=== PATIENT | male | born 1950 | race Caucasian/White ===

== ENCOUNTER → 2017-06-07 | Outpatient (CLI) | payer OTHER | LOC: FIMAGING 13:43 | PROVIDERS: ATTEND Physician Assistant | DX: M51.35 Other intervertebral disc degeneration, thoracolumbar region (principal); M51.25 Other intervertebral disc displacement, thoracolumbar region; M47.815 Spondylosis without myelopathy or radiculopathy, thoracolumbar region; M48.061 Spinal stenosis, lumbar region without neurogenic claudication ==

== ENCOUNTER 2018-08-17 18:57 | Observation (INO) | payer OTHER, MEDICARE ==
--- NOTE | 2018-08-17 19:27 | EDPHY ---
H & P Stated Complaint: Rectal bleeding Time Seen by Provider: 08/17/18 19:11 HPI/ROS: CHIEF COMPLAINT: Rectal bleeding HISTORY OF PRESENT ILLNESS: This is a 67-year-old male who takes meloxicam, baby aspirin daily, and occasional Aleve. He comes to the emergency department with rectal bleeding. He had his 1st episode of rectal bleeding yesterday. He at that time he saw bright red blood when he moved his bowels. He is unable to quantify the amount of blood. He saw his primary care provider, Mikel Flaherty, yesterday about this problem. Labs were drawn yesterday. The patient did well overnight M seemed fine this morning. However this afternoon, around 3:00 p.m. (4 hr ago) he developed bright red blood per rectum. He states that the bleeding has continued since that time. He feels as if he needs to move his bowels but, when he tries to do so, there is only blood. He has begun to feel somewhat lightheaded and dizzy. He denies chest pain or shortness of breath. REVIEW OF SYSTEMS: A ten system review of systems was performed and is negative with the exception of the items mentioned in the HPI. Past medical history: Past surgical history: 1. Knee replacement 2. Right shoulder replacement 3. Lumbar fusion Social history: He lives with his . He is a retired computer engineering technologist. He does not use tobacco products. He does not regularly drink alcohol. General Appearance: Alert. Vital signs reviewed. Eyes: Pupils equal and round, no conjunctival injection, no discharge. Anicteric. ENT, Mouth: Mucous membranes are moist, no oropharyngeal erythema or edema. Neck: No lymphadenopathy, supple. Respiratory: Lungs are clear to auscultation; no wheezes, rales, or rhonchi. Cardiovascular: Regular rate and rhythm; no murmur, rub, or gallop. Gastrointestinal: Abdomen is soft and nontender, no masses or organomegaly, bowel sounds normal. Skin: Warm and dry, no rashes on exposed skin, normal color. Back: Nontender to palpation over the thoracolumbar spine. No CVAT. Rectal: Red blood on examining glove. No visible external hemorrhoid. No palpable masses. No tenderness. Extremities: No lower extremity edema, no calf tenderness or swelling. Neurological: Alert and oriented. Moving all four extremities easily and equally. Psychiatric: Slightly worried affect. - Personal History Current Tetanus/Diphtheria Vaccine: Yes Current Tetanus Diphtheria and Acellular Pertussis (TDAP): Yes Tetanus Vaccine Date: WITHIN 10 YRS - Medical/Surgical History Hx Asthma: No Hx Chronic Respiratory Disease: No Hx Diabetes: No Hx Cardiac Disease: No Hx Renal Disease: No Hx Cirrhosis: No Hx Alcoholism: No Hx HIV/AIDS: No Hx Splenectomy or Spleen Trauma: No Other PMH: arrythmyias, GENEVIEVE, Rt TKA, Lfusion, - Social History Smoking Status: Former smoker Constitutional: Initial Vital Signs Temperature (C) 36.6 C 08/17/18 19:00 Heart Rate 109 H 08/17/18 19:00 Respiratory Rate 18 08/17/18 19:00 Blood Pressure 132/83 H 08/17/18 19:00 O2 Sat (%) 93 08/17/18 19:00 O2 Delivery Mode Room Air O2 (L/minute) 3 Allergies/Adverse Reactions: YELLOW CHEESES Allergy (Uncoded 08/25/12 10:08) TRIGGERS MIGRAINES Home Medications: Medication Instructions Recorded Cholecalciferol Vit D3 [Vitamin D3 2,000 units PO BID 08/19/12 2000 units] Docusate Sodium 100 mg PO DAILY 08/19/12 Metoprolol Succinate Xr [Toprol Xl 25 mg PO DAILY 08/19/12 25 mg (*)] Tamsulosin HCl [Flomax 0.4 MG (*)] 0.4 mg PO DAILY 08/19/12 Zolpidem Tartrate [Ambien 10 mg] 10 mg PO HS 08/19/12 traMADol [Ultram 50 mg (*)] 50 mg PO DAILY 08/19/12 QUEtiapine FUMARATE [Seroquel 50 50 mg PO HS 10/20/16 mg (*)] Calcium Citrate [Citracal] 400 mg PO HS 08/17/18 Cephalexin [Keflex (*)] 500 mg PO TID 08/17/18 Diazepam [Valium 5 MG (*)] 5 mg PO Q6 PRN 08/17/18 Doxycycline Hyclate [Vibramycin 100 mg PO BID 08/17/18 100 MG (*)] Gabapentin [Neurontin 100 MG (*)] 100 mg PO DAILY 08/17/18 LORazepam [Ativan (*)] 1 mg PO Q6 PRN 08/17/18 Magnesium Oxide [Magnesium Oxide 400 mg PO HS 08/17/18 400 mg (*)] Pantoprazole Sodium [Protonix 40mg 40 mg PO BID 08/17/18 (*)] Rizatriptan Benzoate [Maxalt] 10 mg PO Q6 PRN 08/17/18 SUMAtriptan [Imitrex 50 MG (*)] 100 mg PO Q6 PRN 08/17/18 oxyCODONE IR [Oxycodone Ir (*)] 5 mg PO Q6 PRN 08/17/18 Acetaminophen [Tylenol 325mg (*)] 650 mg PO Q4HRS PRN tab 08/18/18 Medical Decision Making - Diagnostics EKG Interpretation: EKG shows sinus tachycardia with rate of 107. No acute ischemic changes. ED Course/Re-evaluation: 67-year-old male on NSAIDs who presents with bright red blood per rectum. By his report he has had significant bleeding for the past 3-4 hours. He is beginning to feel dizzy and lightheaded. Initial blood pressure 132/83. Heart rate 110. 2 large-bore IVs started on patient arrival. Blood work sent. He got up to use the restroom, past blood only. He continues to feel dizzy when upright. Blood pressure 130/89. Patient's blood work yesterday hemoglobin 14.9 hematocrit 45.7. Today hemoglobin 14 hematocrit 41.2. Blood has been typed and screened. 1 unit typed and cross matched to be held. I spoke with Dr. Laney Sanchez will admit the patient to the hospital. I have also spoken with Dr. Bellamy. He plans colonoscopy in the morning. He requests a bowel prep tonight with 1 gal Sher. Early in the morning he would like the patient to receive 300 mL of magnesium citrate orally. NPO after midnight with the exception of the Mag citrate in the morning. Differential Diagnosis: Lower GI bleeding including but not limited to diverticulosis, tumor, AVM, hemorrhoid and anal fissure. - Data Points Laboratory Results: Laboratory Results 08/17/18 19:15 08/17/18 19:15 Medications Given: Discontinued Medications Cephalexin HCl (Keflex) 500 mg PO TID DURAN PRN Reason: Protocol Stop: 09/16/18 21:59 Last Admin: 08/18/18 08:20 Dose: Not Given Cholecalciferol (Vitamin D) 2,000 units PO BID DURAN Stop: 02/14/19 08:59 Last Admin: 08/18/18 08:20 Dose: Not Given Diphenhydramine HCl (Benadryl Injection) 25 mg IVP EDNOW ONE Stop: 08/17/18 20:03 Last Admin: 08/17/18 20:04 Dose: 25 mg Docusate Sodium (Colace) 100 mg PO DAILY DURAN Stop: 02/14/19 08:59 Last Admin: 08/18/18 08:19 Dose: Not Given Doxycycline Hyclate (Doxycycline Hyclate) 100 mg PO BID DURAN PRN Reason: Protocol Stop: 09/16/18 22:14 Last Admin: 08/18/18 08:19 Dose: Not Given Gabapentin (Neurontin) 100 mg PO DAILY DURAN Stop: 02/14/19 08:59 Last Admin: 08/18/18 08:21 Dose: Not Given Sodium Chloride (Ns) 1,000 mls @ 0 mls/hr IV EDNOW ONE; Wide Open PRN Reason: Protocol Stop: 08/17/18 19:30 Last Admin: 08/17/18 19:40 Dose: 1,000 mls Sodium Chloride (Ns) 1,000 mls @ 125 mls/hr IV CONT DURAN Stop: 02/13/19 21:59 Last Admin: 08/18/18 05:30 Dose: 1,000 mls Lactated Ringer's (Lr) 1,000 mls @ 0 mls/hr IV ONCE ONE PRN Reason: As Directed Stop: 08/18/18 11:28 Last Admin: 08/18/18 11:30 Dose: 1,000 mls Magnesium Citrate (Magnesium Citrate) 300 ml PO ONCE ONE Stop: 08/18/18 05:01 Last Admin: 08/18/18 05:30 Dose: 300 ml Magnesium Oxide (Magnesium Oxide) 400 mg PO HS DURAN Stop: 02/13/19 22:14 Last Admin: 08/17/18 22:26 Dose: Not Given Metoprolol Succinate (Toprol Xl) 25 mg PO DAILY DURAN Stop: 02/14/19 08:59 Last Admin: 08/18/18 08:19 Dose: Not Given Ondansetron HCl (Zofran) 4 mg IVP EDNOW ONE Stop: 08/17/18 19:40 Last Admin: 08/17/18 19:40 Dose: 4 mg Ondansetron HCl (Zofran) 4 mg IVP Q4HRS PRN PRN Reason: Nausea/Vomiting, Can't Take PO Stop: 02/13/19 21:50 Last Admin: 08/17/18 23:35 Dose: 4 mg Pantoprazole Sodium (Protonix) 40 mg PO BID DURAN Stop: 02/14/19 08:59 Last Admin: 08/18/18 08:19 Dose: Not Given Polyethylene Glycol/Electrolytes (Gavilyte - G) 4,000 ml PO ONCE ONE Stop: 08/17/18 22:01 Last Admin: 08/17/18 22:36 Dose: 4,000 ml Quetiapine Fumarate (Seroquel) 50 mg PO HS DURAN Stop: 02/13/19 22:14 Last Admin: 08/17/18 22:26 Dose: Not Given Sumatriptan Succinate (Imitrex) 100 mg PO DAILY PRN PRN Reason: MIGRAINE Stop: 02/13/19 21:54 Last Admin: 08/18/18 10:25 Dose: 100 mg Tamsulosin HCl (Flomax) 0.4 mg PO DAILY [facility] Stop: 02/14/19 08:59 Last Admin: 08/18/18 08:19 Dose: Not Given Tramadol HCl (Ultram) 50 mg PO DAILY DURAN Stop: 02/14/19 08:59 Last Admin: 08/18/18 08:19 Dose: Not Given Zolpidem Tartrate (Ambien) 10 mg PO HS DURAN Stop: 02/13/19 22:14 Last Admin: 08/17/18 22:26 Dose: Not Given Point of Care Test Results: Chemistry 08/17/18 19:41 POC Sodium 141 mEq/L mEq/L (135-145) POC Potassium 4.1 mEq/L mEq/L (3.3-5.0) POC Chloride 106 mEq/L mEq/L (97-110) POC Total CO2 21 mEq/L L mEq/L (22-31) POC BUN 20 mg/dL mg/dL (7-23) POC Creatinine 1.2 mg/dL mg/dL (0.7-1.3) POC Glucose 134 mg/dL H mg/dL (70-100) ISTAT H&H 04/10/19 19:41 POC Hgb 13.9 gm/dL gm/dL (13.7-17.5) POC Hct 41 % % (40-51) Departure - Departure Disposition: [facility] Inpatient Acute Clinical Impression: GI bleeding Qualifiers: GI bleed type/associated pathology: unspecified gastrointestinal hemorrhage type Qualified Code(s): K92.2 - Gastrointestinal hemorrhage, unspecified Condition: Fair
[2018-08-17] MEDS ORDERED: NS 1,000 ML IV ONE (19:29)
[2018-08-17] MEDS ORDERED: ONDANSETRON 4 MG/2 ML VIAL ONE (19:34)
[2018-08-17] MEDS ORDERED: ONDANSETRON 4 MG/2 ML VIAL IVP ONE (19:39)
[2018-08-17 19:40] LABS: PLATELET COUNT 231 10^3/uL (150-400)
[2018-08-17 19:48] LABS: INR 0.89 (0.83-1.16); PROTIME(PATIENT) 11.7 SEC (12.0-15.0)
--- NOTE | 2018-08-17 21:24 | CPEKG ---
Test Reason : OPEN Blood Pressure : / mmHG Vent. Rate : 107 BPM Atrial Rate : 107 BPM P-R Int : 140 ms QRS Dur : 097 ms QT Int : 347 ms P-R-T Axes : 053 035 033 degrees QTc Int : 463 ms Sinus tachycardia Confirmed by Dalia Norwood ([id number]) on 08/17/2018 9:23:33 PM Referred By: DALIA NORWOOD Confirmed By:Dalia Norwood
--- NOTE | 2018-08-17 21:27 | SOAPPROG ---
SOAP Progress Note Assessment/Plan: Assessment: Plan: 08/17/18 21:39 Lower GI bleed: H/H stable, but expect that to change. H/H pending, and pt has been typed, crossed. Colonoscopy pending for the morning. Prep tonight per GI. BP ok. Chronic pain due to arthritis: Hold meloxicam, aspirin. Will continue oxycodone , tramadol, gabapentin. Migraine: no CASEY now, but uses sumatriptan and rizatriptan prn Hidradenitis: on chronic doxycycline, cephalexin Elevated blood sugar: will check A1c Hyperlipidemia: on Lipitor CAD: mild, asymptomatic. Hold fish oil. 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 08/17/18 22:13 Subjective: 67 yo male with multiple medical problems including diverticulitis, and arthritis in his back, shoulders and knees for which he takes meloxicam was seen in the office yesterday after a single large bloody bowel movement in the morning. BP was stable. H/H 14.9/45.7. Referral made to GI for further evaluation. He did well the rest of the day yesterday, and through the night, but started having BRBPR around 3pm this afternoon. Had 4 BMs about 20 minutes apart, and after the 4th one, felt dizzy so his brought him to the ED. He had another bloody BM here in the ED and almost passed out on the toilet. H/H in the ED 14/41.2. EKG showed a sinus tachycardia, rate 107. He received 1L NS and is not feeling dizzy any more. Pt being admitted for lower GI bleeding. GI has been consulted and will plan to do colonoscopy in the morning. Objective: Vital Signs Temp Pulse Resp BP Pulse Ox 36.6 C 92 16 113/73 97 08/17/18 20:40 08/17/18 20:40 08/17/18 20:40 08/17/18 20:40 08/17/18 20:40 08/16/18 08/17/18 08/18/18 05:59 05:59 05:59 Intake Total 950 Output Total 500 Balance 450 PT 11.7 SEC (12.0-15.0) L 08/17/18 19:15 INR 0.89 (0.83-1.16) 08/17/18 19:15 General: obese male, awake, alert, NAD HEENT: NC/AT. PERRL, EOMI. O/p moist Neck: supple, no masses. No thyromegaly, tenderness, no carotid bruits Lungs: clear bilaterally Cardiovascular: regular, mild tachycardia Abdomen: obese, normal bowel sounds, soft, NT, no hepatosplenomegaly or masses noted Extremities: trace edema Skin: rash consistent with yeast as well as hidradenitis in L groin Neurologic: alert, oriented, Ashly, no confusion Psychiatric: normal affect, no agitation ICD10 Worksheet Patient Problems: Problems Problem Status Onset Status post shoulder replacement Acute
[2018-08-17] MEDS ORDERED: ONDANSETRON DISINTEGRATING 4 MG TAB PO PRN (21:51)
[2018-08-17] MEDS ORDERED: ONDANSETRON 4 MG/2 ML VIAL IVP PRN (21:51)
[2018-08-17] MEDS ORDERED: ACETAMINOPHEN 325 MG TAB PO PRN (21:51)
[2018-08-17] MEDS ORDERED: Rizatriptan Benzoate [Maxalt] 10 MG PO PRN (21:55)
[2018-08-17] MEDS ORDERED: SUMAtriptan 50 MG TAB PO PRN ×2 (21:55→22:30)
[2018-08-17] MEDS ORDERED: DIAZEPAM 5 MG TAB PO PRN (21:55)
[2018-08-17] MEDS ORDERED: LORazepam 1 MG TAB PO PRN (21:55)
[2018-08-17] MEDS ORDERED: oxyCODONE IR 5 MG TAB PO PRN (21:55)
[2018-08-17] MEDS ORDERED: PEG 3350/NA SULF,BICARB,CL/KCL (GAVILYTE-G) 4000 ML BTL PO ONE (22:00)
[2018-08-17] MEDS ORDERED: ZOLPIDEM TARTRATE 5 MG TAB PO SCH (22:15)
[2018-08-17] MEDS ORDERED: MAGNESIUM OXIDE 400 MG TAB PO SCH (22:15)
[2018-08-17] MEDS ORDERED: QUEtiapine FUMARATE 50 MG TAB PO SCH (22:15)
[2018-08-17] MEDS: DOXYCYCLINE HYCLATE 100 MG CAP/TAB PO SCH (22:26)
[2018-08-17] MEDS: CEPHALEXIN 500 MG CAP PO SCH (22:26)
[2018-08-17] MEDS: NS 1,000 ML IV SCH (22:36)
--- NOTE | 2018-08-17 22:41 | GHP ---
[f rep st] HISTORY AND PHYSICAL DATE OF ADMISSION: 08/17/2018 HISTORY OF PRESENT ILLNESS: The patient is a 67-year-old male with a history of multiple medical pro blems including diverticulitis and arthritis in his back, shoulders and knees for which he takes way xicam, who was seen in the office yesterday after single large bright red bloody bowel movement in th morning. In the office, his blood pressure was stable. Hemoglobin and hematocrit were 14.9/45.7, and a referral was made to GI for further evaluation. He did well for the rest of the day yesterday and through the night, but started having additional bright red blood per rectum about 3 o'clock this afternoon. He had 4 bowel movements approximately 20 minutes apart, and after the 4th one, felt diz zy and lightheaded, so his brought him to the emergency department. He had another bloody bowel movement here in the emergency department and almost passed out on the toilet. Hemoglobin and hemat ocrit were still good at 14/41.2. EKG showed a mild sinus tachycardia with a rate of 107. He receiv ed 1 L of normal saline and is no longer feeling dizzy. He is being admitted for lower GI bleeding. GI has been consulted and will plan on doing a colonoscopy in the morning. PAST MEDICAL HISTORY: Pulmonary nodule, estrogen therapy for feminization, hidradenitis suppurativa, low back pain. Chronic shoulder and knee pain secondary to arthritis, migraines, mild coronary athe rosclerosis, diverticulitis, sleep apnea, prostatic hypertrophy, insomnia, anxiety. MEDICATIONS: 1. Diazepam 5 mg twice a day p.r.n. 2. Oxycodone 5 mg every 6 hours as needed. 3. Lipitor 10 mg daily. 4. Vitamin D 2000 international units capsule 1-2 daily. 5. Fish oil 1400 mg daily. 6. Silvadene 1% cream p.r.n. 7. Stool softener daily. 8. Tamsulosin 0.4 mg daily. 9. Gabapentin 300 mg 3 times daily. 10. Lorazepam 1 mg as needed. 11. Meloxicam 15 mg daily. 12. Seroquel 50 mg at bedtime. 13. Rizatriptan 10 mg p.r.n. alternating with sumatriptan 100 mg p.r.n. 14. Metoprolol succinate 25 mg daily. 15. Estradiol 2 mg daily. 16. Zolpidem 10 mg at bedtime. 17. Doxycycline 100 mg twice daily. 18. Keflex 500 mg three times daily. 19. Protonix 40 mg twice daily as needed. 20. Tramadol 50 mg in the morning. ALLERGIES: Celebrex has caused sores in the mouth. Bactrim causes a rash. SURGICAL HISTORY: Right total knee replacement, lumbar spine surgery. FAMILY HISTORY: His father had a brain tumor at the age of 52. His mother has a history of bladder cancer, low back pain and hypertension. His sister had a partial colectomy. SOCIAL HISTORY: The patient is . He is a nonsmoker and does not drink alcohol. He is a [employer] engineer. REVIEW OF SYSTEMS: GENERAL: No fever or chills. No weight gain or loss. HEENT: Sore throat about 2 weeks ago, which has resolved. No nasal congestion or sinus pain. RESPIRATORY: No cough, wheezi ng, or shortness of breath. CARDIOVASCULAR: No chest pain or pressure, irregular heart rhythms. GI : No nausea, vomiting, diarrhea or constipation. Denies heartburn. Appetite okay. : No dysuria or bleeding with urination. NEUROLOGIC: History of migraines but no headache currently. No weakne ss. Notes burning numb sensation in his right lateral right thigh if he is on his feet for too long. MUSCULOSKELETAL: Chronic arthritis pain in his shoulders, back, and knees. PSYCHIATRIC: Denies d epression or anxiety. Sleep is fair. VITAL SIGNS: Temperature 36.6, pulse 92, respirations 16, blood pressure 113/73, O2 saturation 97% o n room air. GENERAL: This is an obese male who is awake and alert, in no acute distress. HEENT: N ormocephalic, atraumatic. Pupils equal, round, reactive to light. Extraocular movements are intact. Oropharynx is moist. NECK: Supple without masses or adenopathy. No thyromegaly. No thyroid tend erness. No carotid bruits. LUNGS: Clear bilaterally. CARDIOVASCULAR: Regular rhythm. Mild tachy cardia. ABDOMEN: Obese. Normal bowel sounds. Soft, nontender. No hepatosplenomegaly or masses no gregory. EXTREMITIES: Trace lower extremity edema. RECTAL: Deferred as done in the emergency departme nt. SKIN: Rash consistent with mild yeast as well as hidradenitis noted in the left groin. NEUROLO GIC: Alert and oriented, moving all extremities. No confusion. PSYCHIATRIC: Normal affect. No ag itation. ASSESSMENT AND PLAN: 1. Lower GI bleed. Hemoglobin and hematocrit stable, but expect that to change. Hemoglobin and hem atocrit pending and patient has been typed and crossed. Colonoscopy pending for the morning with pre p tonight per GI. Blood pressure stable. 2. Chronic pain due to arthritis. Will hold meloxicam and arthritis. Will continue oxycodone, tram adol, and gabapentin. 3. Migraine headaches. Currently no headache now, but he uses sumatriptan or rizatriptan as needed. 4. Hidradenitis on chronic doxycycline and cephalexin. 5. Elevated blood sugar. Will check A1c. 6. Hyperlipidemia, on Lipitor. 7. Coronary artery disease, mild, asymptomatic. Will hold fish oil. 8. Anxiety on p.r.n. lorazepam but does not need it very often. 9. Gender dysphoria, on estradiol for feminization. 10. Insomnia, on Seroquel and zolpidem. 11. BPH, on tamsulosin. 12. DVT prophylaxis. GREGORY araujo. DISPOSITION: Will admit for observation at this point. /[id number]/MODL
[2018-08-18] MEDS ORDERED: MAGNESIUM CITRATE 300 ML BOTTLE PO ONE (05:00)
[2018-08-18] MEDS: NS 1,000 ML IV SCH (05:30)
[2018-08-18 05:45] LABS: PLATELET COUNT 196 10^3/uL (150-400)
[2018-08-18] MEDS: DOXYCYCLINE HYCLATE 100 MG CAP/TAB PO SCH (08:19)
[2018-08-18] MEDS: CEPHALEXIN 500 MG CAP PO SCH (08:20)
--- NOTE | 2018-08-18 08:50 | SOAPPROG ---
SOAP Progress Note Assessment/Plan: Assessment: Plan: 08/18/18 08:49 probable diverticular bleeding, no bleeding overnight. Hgb down a bit. Colonoscopy pending. NSAID's/fish oil held. Subjective: Tristen feels ok. No bleeding overnight. No pain. Frustrated with gown and depends, but ok otherwise. Colonoscopy pending. Objective: Vital Signs Temp Pulse Resp BP Pulse Ox 36.8 C 99 16 112/55 L 90 L 08/18/18 08:00 08/18/18 08:00 08/18/18 08:00 08/18/18 08:00 08/18/18 08:00 Laboratory Results 08/18/18 04:19 08/18/18 04:19 08/17/18 08/18/18 08/19/18 05:59 05:59 05:59 Intake Total 5885 Output Total 800 300 Balance 5085 -300 PT 11.7 SEC (12.0-15.0) L 08/17/18 19:15 INR 0.89 (0.83-1.16) 08/17/18 19:15 Gen: flustered, o/w ok. Lungs: CTAB Heart: tachy regular after thrashing with gown and depends Abd + bs ,soft, obese, NT, ND LEs' no edema Hgb 11.5 ICD10 Worksheet Patient Problems: Problems Problem Status Onset Status post shoulder replacement Acute
[2018-08-18] MEDS ORDERED: GABAPENTIN 100 MG CAP PO SCH (09:00)
[2018-08-18] MEDS ORDERED: TAMSULOSIN HCL 0.4 MG CAP PO SCH (09:00)
[2018-08-18] MEDS ORDERED: DOCUSATE SODIUM 100 MG CAP PO SCH (09:00)
[2018-08-18] MEDS ORDERED: PANTOPRAZOLE SODIUM 40 MG TAB PO SCH (09:00)
[2018-08-18] MEDS ORDERED: METOPROLOL SUCCINATE XR 25 MG TAB PO SCH (09:00)
[2018-08-18] MEDS ORDERED: traMADol 50 MG TAB PO SCH (09:00)
[2018-08-18] MEDS ORDERED: CHOLECALCIFEROL VIT D3 2,000 UNITS TAB/CAP PO SCH (09:00)
[2018-08-18] MEDS ORDERED: LR 1,000 ML IV ONE (11:27)
[2018-08-18] MEDS ORDERED: PROPOFOL/EMULSION 500 MG/50 ML BOTTLE IV ONE (12:15)
--- NOTE | 2018-08-18 12:38 | GIREPORT ---
[facility] Surgical Services - Endoscopy Department Patient Name: Júnior Sanchez Procedure Date: 08/18/2018 12:06 PM Patient Type: Inpatient Attending MD/ ER Physician: Alex Bellamy MD Procedure: Upper GI endoscopy Indications: Acute post hemorrhagic anemia, Recent gastrointestinal bleeding (suspec t LGI bleed but given senior care use of NSAID will exclude UGI source) Providers: Alex Bellamy MD Medicines: Propofol per Anesthesia Complications: No immediate complications. Description of Procedure: After obtaining informed consent, the endoscope was passed under direct vision. Throughout the procedure, the patient's blood pressure, pulse, and oxygen saturations were monitored continuously. The Endoscope was intro duced through the mouth, and advanced to the second part of duodenum. The [facility] er GI endoscopy was accomplished without difficulty. The patient tolerated th e procedure well. Findings: LA Grade A (one or more mucosal breaks less than 5 mm, not extending be tween tops of 2 mucosal folds) esophagitis with no bleeding was found at the gastroesophageal junction. Patchy mild inflammation characterized by congestion (edema), erythema and granularity was found in the gastric fundus and in the gastric body. The examined duodenum was normal. Estimated Blood Loss: Estimated blood loss: none. Post Op Diagnosis: - LA Grade A reflux esophagitis. - Acute gastritis. - Normal examined duodenum. - No specimens collected. - No evidence for acute UGI bleeding. Recommendation: - Perform a colonoscopy today. - Continue present medications. - Return patient to hospital yi for ongoing care. Attending Participation: I personally performed the entire procedure without the assistance of a fellow, resident or surg ical visitor service assistant. Alex Bellamy MD Alex Bellamy MD 08/18/2018 12:37:31 PM This report has been signed electronicallyDavid MD Mia Number of Addenda: 0 Note Initiated On: 08/18/2018 12:06 PM [email or web address]}
[2018-08-18] MEDS ORDERED: PROPOFOL 200 MG/20 ML VIAL ONE (12:46)
--- NOTE | 2018-08-18 12:56 | GIREPORT ---
[facility] Surgical Services - Endoscopy Department Patient Name: Júnior Sanchez Procedure Date: 08/18/2018 12:07 PM Patient Type: Inpatient Attending MD/ ER Physician: Alex Bellamy MD Procedure: Colonoscopy Indications: Hematochezia, Acute post hemorrhagic anemia Providers: Alex Bellamy MD Medicines: Propofol per Anesthesia Complications: No immediate complications. Description of Procedure: After obtaining informed consent, the scope was passed under direct vis ion. Throughout the procedure, the patient's blood pressure, pulse, and oxyg en saturations were monitored continuously. The Colonoscope with irrigatio n channel was introduced through the anus and advanced to the cecum, identified by appendiceal orifice and ileocecal valve. The colonoscopy was performed without difficulty. The patient tolerated the procedure well. The quality of the bowel preparation was good. The ileocecal valve, appendi ceal orifice, and rectum were photographed. Findings: The digital rectal exam findings include non-thrombosed external hemorrhoids. Pertinent negatives include normal sphincter tone and no palpable rectal lesions. Many small and large-mouthed diverticula were found in the entire colon . The exam was otherwise without abnormality. Estimated Blood Loss: Estimated blood loss: none. Post Op Diagnosis: - Non-thrombosed external hemorrhoids found on digital rectal exam. - Diverticulosis in the entire examined colon. - The examination was otherwise normal. - No specimens collected. - I suspect diverticular bleeding. Recommendation: - Repeat colonoscopy in 3 years for surveillance. - Resume previous diet. - Continue present medications. - Return patient to hospital yi for ongoing care. - Thank you for allowing me to be involved in the care of your patient. Attending Participation: I personally performed the entire procedure without the assistance of a fellow, resident or surg ical teacher assistant. Alex Bellamy MD Alex Bellamy MD 08/18/2018 12:55:36 PM This report has been signed electronicallyDavid MD Mia Number of Addenda: 0 Note Initiated On: 08/18/2018 12:07 PM Total Procedure Duration Time 0 hours 11 minutes 59 seconds [email or web address]}
--- NOTE | 2018-08-18 13:18 | ASMTCMCOM ---
CM Note CM Note Notes: Met with Pt's as Pt is having a colonoscope and Chart reviewed for discharge. Pt is a 67yr old adm with GI Bleeding. Pt has a Hx of Diverticulitis, Pulm nodule, Chronic pain, migraine anxiety, Diabetic, CAD, insomnia. Pt live with his who uses a w/c for long distance and Pt will likely discharge home with her. CM available should needs arise. PLAN: Likely Home Independently with . Date Signed: 08/18/2018 01:17 PM Electronically Signed By:Loida Grissom
--- NOTE | 2018-08-18 13:59 | POSTANESTH ---
Post Anesthetic Evaluation Cardiovascular Status: Normal, Stable Respiratory Status: Normal, Stable Level of Consciousness/Mental Status: Can Participate in Eval Pain Control: Adequate, Prn Tx Ordered Nausea/Vomiting Control: Adequate, Prn Tx Ordered Complications Possibly Related to Anesthesia: None Noted
[2018-08-18] MEDS ORDERED: NALOXONE HCL 0.4 MG/ML INJ IVP PRN (14:02)
[2018-08-18 14:15] VITALS: BP 132/91
--- NOTE | 2018-08-18 16:32 | SOAPPROG ---
SOAP Progress Note Assessment/Plan: Assessment: Plan: 08/18/18 08:49 probable diverticular bleeding, no bleeding overnight. Hgb down a bit. Colonoscopy pending. NSAID's/fish oil held. 08/18/18 16:31 Will d/c home. Eating ok, hgb stable. Colonoscopy with diffuse diverticular disease, no active bleeding. Subjective: Júnior is doing well after colonoscopy and wants to go home. Repeat Hgb is 12.1 He has been able to eat, will d/c home. Objective: Vital Signs Temp Pulse Resp BP Pulse Ox 36.7 C 94 16 132/91 H 90 L 08/18/18 14:14 08/18/18 14:14 08/18/18 14:14 08/18/18 14:14 08/18/18 14:14 Laboratory Results 08/18/18 15:10 08/18/18 04:19 08/17/18 08/18/18 08/19/18 05:59 05:59 05:59 Intake Total 5885 500 Output Total 800 300 Balance 5085 200 PT 11.7 SEC (12.0-15.0) L 08/17/18 19:15 INR 0.89 (0.83-1.16) 08/17/18 19:15 ICD10 Worksheet Patient Problems: Problems Problem Status Onset Status post shoulder replacement Acute
--- NOTE | 2018-08-18 16:54 | GDS ---
[f rep st] DISCHARGE SUMMARY REASON FOR ADMISSION: Gastrointestinal bleed, presumed lower. DISCHARGE DIAGNOSES: Presumed diverticular bleeding. HOSPITAL COURSE: The patient was admitted to the ER due to symptoms of some lightheadedness and shor tness of breath and weakness associated with diverticular bleeding. He has had red to maroonish colo red stool on several episodes triggering an ER visit. He had had 1 episode of larger volume bloody s tool 2 days ago with a stable hemoglobin and was feeling well until he started bleeding again. His a spirin, fish oil, and Advil had been stopped. It sounds like he may have been taking Mobic in conjun ction with the others. This has been stopped as well. He had GI consultation with Dr. Bellamy, who pe rformed a colonoscopy. He had diffuse diverticulosis without active bleeding. Given resolution of b leeding, patient has been able to eat and drink. Hemoglobin has been stable. Most recent value was 12.1. He will be discharged home. He will have outpatient followup in the next couple of days. We will avoid resuming anything in the NSAID category. We will keep his diet simple, will try to avoid constipation, and follow up further based on how he does in the office. /[id number]/MODL
[2018-08-18] MEDS ORDERED: CALCIUM CARBONATE 500 MG TAB PO SCH (21:00)
== END 2018-08-18 17:17 | disposition home or self-care (01) ==
LOC: INTOOBSV 19:56 → F3E 20:38
PROVIDERS: ADMIT Internal Medicine; ATTEND Internal Medicine
DX: K92.2 Gastrointestinal hemorrhage, unspecified (principal); K57.30 Diverticulosis of large intestine without perforation or abscess without bleeding; K29.00 Acute gastritis without bleeding; R73.09 Other abnormal glucose; E86.9 Volume depletion, unspecified; K64.9 Unspecified hemorrhoids; K21.0 Gastro-esophageal reflux disease with esophagitis; G47.33 Obstructive sleep apnea (adult) (pediatric); N40.0 Benign prostatic hyperplasia without lower urinary tract symptoms; E66.9 Obesity, unspecified; Z68.41 Body mass index [BMI] 40.0-44.9, adult; G89.29 Other chronic pain; L73.2 Hidradenitis suppurativa; E78.5 Hyperlipidemia, unspecified; I25.10 Atherosclerotic heart disease of native coronary artery without angina pectoris; F41.9 Anxiety disorder, unspecified; F64.9 Gender identity disorder, unspecified; Z79.82 Long term (current) use of aspirin; Z79.818 Long term (current) use of other agents affecting estrogen receptors and estrogen levels; Z87.19 Personal history of other diseases of the digestive system; Z87.891 Personal history of nicotine dependence; Z96.611 Presence of right artificial shoulder joint; Z96.651 Presence of right artificial knee joint; Z98.1 Arthrodesis status
CPT/HCPCS: 43235; 45378; 93005; 96361; 96374; 96375; 96376; 99285; G0378; J1200; J2405; J2704; 82435-PO; 82565-PO; 82947-PO; 84132-PO; 84295-PO; 84520-PO; 85014-ER